=== PATIENT | male | born 1995 | race Caucasian/White ===

== ENCOUNTER → 2021-11-07 | Outpatient (CLI) | payer BC, OTHER | END | disposition home or self-care (01) | LOC: COVID19 15:23 | PROVIDERS: ATTEND Internal Medicine | DX: Z11.52 Encounter for screening for COVID-19 (principal) ==

== ENCOUNTER → 2025-03-08 | Outpatient (CLI) | payer BC ==
[2025-03-08 09:15] LABS: BASO % 0.4 % (0.0-1.0); EOS # 0.1 10*3/uL (0.0-0.4); EOS % 1.9 % (1.0-4.0); HEMATOCRIT 46.1 % (42.0-52.0); MEAN CELL VOLUME 85.7 fl (80.0-94.0); MEAN CORPUSCULAR HGB 28.6 pg (27.0-31.0); MEAN CORPUSCULAR HGB CONC 33.4 g/dl (33.0-37.0); MEAN PLATELET VOLUME 8.8 fl (9.6-12.3); MONO # 0.5 10*3/uL (0.1-1.0); MONO % 7.7 % (3.0-9.0); NEUT # 3.5 10*3/uL (2.3-7.9); NEUT % 52.6 % (47.0-73.0); PLATELET COUNT AUTOMATED 253 10*3/uL (130-400); RED BLOOD COUNT 5.38 10*6/uL (4.50-5.90); RED CELL DISTRI WIDTH 12.5 % (0-14.5); WHITE BLOOD COUNT 6.7 10*3/uL (4.8-10.8)
[2025-03-08 09:41] LABS: ALKALINE PHOSPHATASE 69 U/L (46-116); BUN 12 mg/dl (9-23); CHLORIDE 104 mmol/L (98-107); CHOLESTEROL 160 mg/dL (<200); LDL CHOLESTEROL 106 mg/dL (9-159); POTASSIUM 4.4 mmol/L (3.4-5.1); SGPT/ALT 20 U/L (5-49); TOTAL PROTEIN 7.3 gm/dL (6.0-8.0); TRIGLYCERIDES 66 mg/dl (<150)
== END | disposition home or self-care (01) ==
LOC: LAB 08:44
PROVIDERS: ATTEND Nurse Practitioner Family
DX: G44.009 Cluster headache syndrome, unspecified, not intractable (principal)